=== PATIENT | female | born 1985 | race Caucasian/White ===

== ENCOUNTER 2017-10-25 08:37 | Emergency (ER) | payer OTHER ==
[~2017-10-25] VITALS: Ht 162.6 cm; Wt 70.3 kg
[2017-10-25 08:37] VITALS: BP 142/87
--- NOTE | 2017-10-25 09:13 | PHYS DOC ---
Past History Past Medical History: No Pertinent History Alcohol Use: None Drug Use: None Adult General Chief Complaint Chief Complaint: LACERATION/AVULSION HPI HPI 32-year-old female otherwise healthy currently presenting the emergency department after injuring her left second distal phalanx while opening a blueberry container. She suffered a laceration to the volar portion of her distal phalanx of the second phalanx. She reports her immunizations are up-to-date. She has mild pain that is nonradiating and constant. Review of systems is negative for any other injuries. All other review of systems is negative unless otherwise noted in history of present illness. ED course: 32-year-old female presenting with a laceration to the distal second phalanx. The wound was washed out in the emergency department. Tetanus is up-to- date. We reapproximated the wound with Dermabond. No foreign bodies or tendon injuries on inspection of the wound. The patient has been examined and was not found to have an emergency medical condition. The patient was then discharged home in stable condition to follow up with their primary care physician over the next 2-3 days. They were to return if their symptoms worsened or if they were concerned for any reason. They were also instructed to return to the emergency department if they were unable to get the recommended and appropriate follow-up. [id number] discharge instructions and return precautions were given. Patient's questions were answered to their satisfaction. Patient is comfortable with plan. Review of Systems Review of Systems SEE ABOVE. Physical Exam Physical Exam SEE ABOVE Constitutional: Well developed, well nourished, no acute distress, non-toxic appearance. [] Skin: Patient has a superficial cut over the volar aspect of the second phalanx. No tendon injury or foreign bodies. Normal neurovascular status. 2 second cap refill. No other injuries. EKG EKG [] Radiology/Procedures Radiology/Procedures [] Course & Med Decision Making Course & Med Decision Making Pertinent Labs and Imaging studies reviewed. (See chart for details) [] Dragon Disclaimer Dragon Disclaimer This electronic medical record was generated, in whole or in part, using a voice recognition dictation system. Departure Departure: Impression: Primary Impression: Laceration Disposition: 01 HOME, SELF-CARE Condition: STABLE Referrals: RENZO BOYER PA-C (PCP) Patient Instructions: Laceration Care, Adult Additional Instructions: Thank you for allowing us to participate in your care today. Return to the emergency department you have any new or worsening symptoms, or if you are concerned for any reason. Return to emergency department if you have any new or concerning symptoms including but not limited to fever, chills, nausea, vomiting, intractable pain, any new rashes, chest pain, shortness of air , uncontrolled bleeding, difficulty breathing, and/or vision loss. Follow up with your primary care physician within 3 days. Call your Primary Doctor tomorrow and inform them of your visit today. If you do not have a primary care provider we are happy to provide you with a list of our primary care providers contact information. This condition should be evaluated by your primary care physician and any recommended consulting services for continued management within 2-3 days after discharge. If at any time, you are having difficulty getting into your primary care doctor or a specialist, return to the emergency department. Laceration Repair Lac Repair Indication: []Laceration Procedure: The patient was placed in the appropriate position and Dermabond was used to reapproximate the wound after being washed out. Total repaired wound length: 1.5 cm Other Items: The patient tolerated the procedure well. Complications: none. MADISON ONEILL MD Oct 25, 2017 09:13
== END 2017-10-25 09:20 | disposition home or self-care (01) ==
LOC: ER 08:37
DX: O9A.219 Injury, poisoning and certain other consequences of external causes complicating pregnancy, unspecified trimester (principal); S61.211A Laceration without foreign body of left index finger without damage to nail, initial encounter; Z3A.00 Weeks of gestation of pregnancy not specified; W26.0XXA Contact with knife, initial encounter; Y93.89 Activity, other specified; Y92.89 Other specified places as the place of occurrence of the external cause; Y99.8 Other external cause status
CPT/HCPCS: 12001; 99283